=== PATIENT | female | born 1995 | race Caucasian/White ===

== ENCOUNTER 2017-11-10 12:51 | Emergency (ER) | payer OTHER, SELFPAY ==
--- NOTE | 2017-11-10 13:23 | ER ---
Nurse's Notes [facility] Name: Eulalia Schwartz Age: 22 yrs Sex: Female : 1995 Arrival Date: 11/10/2017 Time: 12:56 Bed 16 Private MD: None, None Diagnosis: Periapical abscess without sinus;Dentalgia Presentation: 11/10 13:06 Presenting complaint: Patient states: I have pain and I had a pus bubble in my tooth aj1 that popped and now it hurts it in my neck and the right side of my face. Reports fever 2 days ago. Patient has not been able to see a dentist about this complaint. Transition of care: patient was not received from another setting of care. Onset of symptoms was November 01, 2017. Risk Assessment: Do you want to hurt yourself or someone else? Patient reports no desire to harm self or others. Initial Sepsis Screen: Does the patient meet any 2 criteria? No. Patient's initial sepsis screen is negative. Does the patient have a suspected source of infection? No. Patient's initial sepsis screen is negative. Care prior to arrival: None. 13:06 Method Of Arrival: Ambulatory aj1 13:06 Acuity: ESTEFANIA 4 aj1 Triage Assessment: 13:09 General: Appears in no apparent distress. uncomfortable, Behavior is calm, cooperative, aj1 appropriate for age. Pain: Complains of pain in right ear, right catholic and right jaw Pain radiates to neck Pain currently is 8 out of 10 on a pain scale. Quality of pain is described as throbbing, Pain began 9 days ago Is continuous, Alleviated by nothing. Aggravated by eating. EENT: Reports pain in right cheek, right ear, right catholic and right jaw. Respiratory: Airway is patent Respiratory effort is even, unlabored, Respiratory pattern is regular, symmetrical, Denies shortness of breath. GI: Reports nausea, Patient currently denies vomiting. 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 - Social history:: Smoking status: Patient/guardian denies using tobacco. - Ebola Screening: : Patient denies travel to an Ebola-affected area in the 21 days before illness onset. Screenin:31 Abuse screen: Denies threats or abuse. Denies injuries from another. Nutritional sv screening: No deficits noted. Tuberculosis screening: No symptoms or risk factors identified. Fall Risk None identified. Assessment: 13:15 General: Appears in no apparent distress. comfortable, well groomed, well developed, sg well nourished, Behavior is calm, cooperative, appropriate for age. Pain: Complains of pain in right cheek and right jaw Quality of pain is described as throbbing. Neuro: Level of Consciousness is awake, alert, obeys commands, Oriented to person, place, time, situation, Curriculum Specialist are equal bilaterally Speech is normal, Facial symmetry appears normal. Cardiovascular: Heart tones S1 S2 present Chest pain is denied. Respiratory: Airway is patent Respiratory effort is even, unlabored, Respiratory pattern is regular, symmetrical. GI: No signs and/or symptoms were reported involving the gastrointestinal system. : No signs and/or symptoms were reported regarding the genitourinary system. EENT: Oral mucosa is moist. Poor dentition noted. pt reports toothpain and swelling. Derm: Skin is pink, warm \T\ dry. Musculoskeletal: No signs and/or symptoms reported regarding the musculoskeletal system. 13:32 Reassessment: Patient appears in no apparent distress at this time. Patient and/or sv family updated on plan of care and expected duration. Pain level reassessed. Patient is alert, oriented x 3, equal unlabored respirations, skin warm/dry/pink. Vital Signs: 13:09 BP 132 / 85; Pulse 92; Resp 18; Temp 98.8; Pulse Ox 98% on R/A; Weight 70.31 kg (R); aj1 Height 5 ft. 6 in. (167.64 cm); Pain 8/10; 13:09 Body Mass Index 25.02 (70.31 kg, 167.64 cm) aj1 ED Course: 12:56 Patient arrived in ED. sb2 12:56 None, None is Private Physician. sb2 13:08 Triage completed. aj1 13:09 Arm band placed on Patient placed in an exam room. aj1 13:12 Adriel Arrieta PA is PHCP. jr8 13:12 Oscar Franz MD is Attending Physician. jr8 13:31 Patient has correct armband on for positive identification. Bed in low position. Adult sv w/ patient. 13:31 No provider procedures requiring assistance completed. Patient did not have IV access sv during this emergency room visit. Administered Medications: No medications were administered Outcome: 13:22 Discharge ordered by . jr8 13:32 Discharged to home ambulatory, with family. sv 13:32 Condition: stable 13:32 Discharge instructions given to patient, Instructed on discharge instructions, follow up and referral plans. no drinking with medication, no driving heavy equipment, medication usage, Demonstrated understanding of instructions, follow-up care, medications, Prescriptions given X 3. 13:32 Patient left the ED. sv Signatures: Karin Watson RN RN aj1 Katherine Plunkett RN RN Jarod Gudino RN RN sg Roszak, Josh, PA PA jr8 Radha Dolan sb2
--- NOTE | 2017-11-10 13:23 | EDPHYS ---
Physician Documentation [facility] Name: Eulalia Schwartz Age: 22 yrs Sex: Female : 1995 Arrival Date: 11/10/2017 Time: 12:56 Bed 16 Private MD: None, None ED Physician Oscar Franz HPI: 11/10 13:19 This 22 yrs old Female presents to ER via Ambulatory with complaints of jr8 Toothache - ABSCESS. 13:19 The patient presents with broken tooth/teeth, pain. The problem is located in the right jr8 jaw. Onset: The symptoms/episode began/occurred gradually, 1 week(s) ago. Duration: The symptoms are continuous. Modifying factors: The symptoms are alleviated by nothing. Associated signs and symptoms: The patient has no apparent associated signs or symptoms. Severity of symptoms: At their worst the symptoms were moderate, in the emergency department the symptoms are unchanged. The patient has not experienced similar symptoms in the past. The patient has not recently seen a physician. Stated that her tooth has been draining on/off for past week or more. Pain to right tooth. Stated that it has been broken for some time . 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 - Social history:: Smoking status: Patient/guardian denies using tobacco. - Ebola Screening: : Patient denies travel to an Ebola-affected area in the 21 days before illness onset. ROS: 13:19 Eyes: Negative for injury, pain, redness, and discharge, Neck: Negative for injury, jr8 pain, and swelling, Cardiovascular: Negative for chest pain, palpitations, and edema, Respiratory: Negative for shortness of breath, cough, wheezing, and pleuritic chest pain, Abdomen/GI: Negative for abdominal pain, nausea, vomiting, diarrhea, and constipation, Back: Negative for injury and pain, MS/Extremity: Negative for injury and deformity, Skin: Negative for injury, rash, and discoloration, Neuro: Negative for headache, weakness, numbness, tingling, and seizure. 13:19 ENT: Positive for dental pain, Negative for ear pain, nasal discharge, rhinorrhea, sinus congestion, sinus pain, sore throat, difficulty swallowing, difficulty handling secretions, hoarseness. Exam: 13:19 Head/Face: Normocephalic, atraumatic. Eyes: Pupils equal round and reactive to light, jr8 extra-ocular motions intact. Lids and lashes normal. Conjunctiva and sclera are non-icteric and not injected. Cornea within normal limits. Periorbital areas with no swelling, redness, or edema. Neck: Trachea midline, no thyromegaly or masses palpated, and no cervical lymphadenopathy. Supple, full range of motion without nuchal rigidity, or vertebral point tenderness. No Meningismus. Cardiovascular: Regular rate and rhythm with a normal S1 and S2. No gallops, murmurs, or rubs. Normal PMI, no JVD. No pulse deficits. Respiratory: Lungs have equal breath sounds bilaterally, clear to auscultation and percussion. No rales, rhonchi or wheezes noted. No increased work of breathing, no retractions or nasal flaring. Abdomen/GI: Soft, non-tender, with normal bowel sounds. No distension or tympany. No guarding or rebound. No evidence of tenderness throughout. Back: No spinal tenderness. No costovertebral tenderness. Full range of motion. Skin: Warm, dry with normal turgor. Normal color with no rashes, no lesions, and no evidence of cellulitis. MS/ Extremity: Pulses equal, no cyanosis. Neurovascular intact. Full, normal range of motion. Neuro: Awake and alert, GCS 15, oriented to person, place, time, and situation. Cranial nerves II-XII grossly intact. Motor strength 5/5 in all extremities. Sensory grossly intact. Cerebellar exam normal. Normal gait. 13:19 ENT: External ear(s): are unremarkable, Ear canal(s): are normal, TM's: are normal, no evidence of bulging, no dullness, no erythema, no fluid levels, no hemotympanum, no rupture, normal bony landmarks, normal mobility, Nose: is normal, Mouth: Lips: moist, Oral mucosa: pink and intact, moist, Gums: pink, Tongue: is moist, Posterior pharynx: Airway: patent, Tonsils: are normal in appearance, Uvula: midline, swelling, is not appreciated, erythema, is not appreciated, Dental exam: pain, that is moderate, specifically in the upper right first molar (#3), broken, rotting tooth noted. No active drainage seen . Vital Signs: 13:09 BP 132 / 85; Pulse 92; Resp 18; Temp 98.8; Pulse Ox 98% on R/A; Weight 70.31 kg (R); aj1 Height 5 ft. 6 in. (167.64 cm); Pain 8/10; 13:09 Body Mass Index 25.02 (70.31 kg, 167.64 cm) aj1 MDM: 13:12 Patient medically screened. jr8 13:19 Data reviewed: vital signs, nurses notes, and as a result, I will discharge patient. jr8 Data interpreted: Pulse oximetry: on room air is 98 %. Interpretation: normal. Counseling: I had a detailed discussion with the patient and/or guardian regarding: the historical points, exam findings, and any diagnostic results supporting the discharge/admit diagnosis, the need for outpatient follow up, a dentist, to return to the emergency department if symptoms worsen or persist or if there are any questions or concerns that arise at home. Administered Medications: No medications were administered Disposition: 11/10/17 13:22 Discharged to Home. Impression: Periapical abscess without sinus, Dentalgia. - Condition is Stable. - Discharge Instructions: Dental Abscess, Root Canal Treatment. - Prescriptions for Augmentin 875- 125 mg Oral Tablet - take 1 tablet by ORAL route every 12 hours for 10 days; 20 tablet. Ibuprofen 800 mg Oral Tablet - take 1 tablet by ORAL route every 12 hours As needed take with food; 20 tablet. Tramadol 50 mg Oral Tablet - take 1 tablet by ORAL route every 8 hours as needed; 12 tablet. - Medication Reconciliation Form, Thank You Letter, Antibiotic Education, Prescription Opioid Use form. - Family Work Release (11/10/17 13:39). sv - Work release form (11/10/17 13:35). em1 - Follow up: Private Physician; When: 2 - 3 days; Reason: Recheck today's complaints, Continuance of care, Re-evaluation by your physician. - Problem is new. - Symptoms have improved. Addendum: 11/12/2017 14:44 Co-signature as Attending Physician, Oscar Franz MD I agree with the assessment and w a plan of care. Signatures: Karin Watson RN RN aj1 Katherine Plunkett RN RN Adriel Guadalupe PA PA jr8 Oscar Franz MD MD wa Martinez, Luis dickey1 Corrections: (The following items were deleted from the chart) 11/10 13:32 13:22 11/10/2017 13:22 Discharged to Home. Impression: Periapical abscess without sv sinus; Dentalgia. Condition is Stable. Forms are Medication Reconciliation Form, Thank You Letter, Antibiotic Education, Prescription Opioid Use. Follow up: Private Physician; When: 2 - 3 days; Reason: Recheck today's complaints, Continuance of care, Re-evaluation by your physician. Problem is new. Symptoms have improved. jr8
[2017-11-10 15:37] VITALS: BP 132/85; TEMP 98.8; O2SAT 98
== END 2017-11-10 13:32 | disposition home or self-care (01) ==
LOC: ER 12:51
DX: K04.7 Periapical abscess without sinus (principal); Z88.4 Allergy status to anesthetic agent
CPT/HCPCS: 99282